=== PATIENT | female | born 1940 | race Caucasian/White ===

== ENCOUNTER 2017-02-19 10:16 | Emergency (ER) | payer MEDICARE, OTHER ==
[~2017-02-19] VITALS: Ht 163.8 cm; Wt 80.0 kg
[~2017-02-19 10:16] MED LIST: ASPI325T PO; ENOX40P SQ; GINKO; HYDR-2951 PO; MANY VITAMINS
[2017-02-19 10:21] VITALS: BP 159/58; PULSE 72; RESP 16; TEMP 97.5; O2SAT 98
[2017-02-19] MEDS ORDERED: multivitamins (10:34)
--- NOTE | 2017-02-19 11:10 | PD ---
HPI . Fall Chief Complaint: Injury Time Seen by Provider: 10:35 Travel History International Travel<30 days: No Contact w/Intl Traveler<30days: No Traveled to known affect area: No History of Present Illness HPI Patient presents for evaluation of injury sustained in a fall. The fall occurred yesterday. It was a trip and fall. She was pulling a shopping cart at the time of the injury. She fell onto both hands and onto her right knee. She states that she immediately had pain in her left forearm and went to a nearby store and bought a wrap for her arm. She states that the wrap has improved her pain a lot. Her pain is very mild. Pain is exacerbated by pronating and supinating her arm. She noticed some bruising to her right knee while she was here in the emergency department. She is concerned about that because she has hardware in her knee. She has no pain in her knee. PFSH Past Medical History Hx Anticoagulant Therapy: No Diabetes: No ?: Not Past Surgical History Oral Surgery: Yes (TONSILLECTOMY) Other Surgery: Yes Social History Alcohol Use: No Tobacco Use: No Substance Use: No Allergies-Medications (Allergen,Severity, Reaction): Coded Allergies: No Known Allergies (Unverified Adverse Reaction, Unknown, 02/19/17) Reported Meds & Prescriptions Reported Meds & Active Scripts Active Reported [multivitamins] Review of Systems Except as stated in HPI: all other systems reviewed are Neg Physical Exam Narrative GENERAL: Awake and alert and in no acute distress. SKIN: Warm and dry. HEAD: Normocephalic/atraumatic. EYES: Pupils are equal. Extraocular movements are intact. NECK: Normal range of motion. CARDIOVASCULAR: Regular rate and rhythm. RESPIRATORY: Nonlabored respirations. MUSCULOSKELETAL: Left forearm has no bruising or deformity noted. No tenderness along the radius or the ulna. She does have tenderness in the musculature on the extensor surface of the forearm. She has pain with pronation and supination. She is distally neurovascularly intact. The right knee has very faint bruising on the lateral aspect of the knee. There is no deformity at the. She is able to flex and extend the knee completely without difficulty. She is able to ambulate on her knee without difficulty. NEUROLOGICAL: Nonfocal. PSYCHIATRIC: Appropriate mood and affect. Data Data Last Documented VS Vital Signs Date Time Temp Pulse Resp B/P (MAP) Pulse Ox O2 Delivery O2 Flow Rate FiO2 02/19/17 10:21 97.5 72 16 159/58 (91) 98 Orders Orders Forearm (2vws) (02/19/17 10:39) Knee, Complete (4vws) (02/19/17 10:39) MDM Medical Decision Making Medical Screen Exam Complete: Yes Emergency Medical Condition: Yes Differential Diagnosis Differential diagnosis of extremity trauma includes but is not limited to fracture, sprain or strain, dislocation, contusion Narrative Course This patient presents for the evaluation of an injury to her left forearm and right knee as the result of a fall which occurred yesterday. By examination, she has strained muscles in her left forearm and a contusion to the right knee. Last Impressions Radius/Ulna X-Ray 02/19/17 1039 Signed Impressions: Service Date/Time: January 10:58 - CONCLUSION: Mild osteopenia with no underlying bony abnormality. Sam Ho MD Knee X-Ray 02/19/17 1039 Signed Impressions: Service Date/Time: January 10:58 - CONCLUSION: 1. Remote postsurgical changes . 2. Osteopenia with no acute fracture or malalignment. Sam Ho MD The x-rays were independently viewed by me. Diagnosis Primary Impression: Strain of left forearm Qualified Codes: S56.912A - Strain of unspecified muscles, fascia and tendons at forearm level, left arm, initial encounter Additional Impression: Contusion of right knee Qualified Codes: S80.01XA - Contusion of right knee, initial encounter Patient Instructions: Contusion in Adults (DC), General Instructions, Muscle Strain (DC), RICE Therapy (ED) Additional Instructions: Continue the wrap as needed for comfort. Tylenol or ibuprofen as needed for pain. Disposition: 01 DISCHARGE HOME Condition: Stable Makayla Voss MD Feb 19, 2017 11:10
--- NOTE | 2017-02-19 11:30 | RADRPT ---
EXAM DATE/TIME: 02/19/2017 10:58 [facility] COMPARISON: No previous studies available for comparison. INDICATIONS : Fall, left forearm pain from elbow to wrist. MEDICAL HISTORY : None. SURGICAL HISTORY : None. ENCOUNTER: Initial ACUITY: 2 days PAIN SCORE: 4/10 LOCATION: Left forearm FINDINGS: Two view examination of the left forearm demonstrates no evidence of fracture or dislocation. There i s mild osteopenia. The soft tissue structures are intact. CONCLUSION: Mild osteopenia with no underlying bony abnormality. Sam Ho MD on February 19, 2017 at 11:27 Board Certified Radiologist. This report was verified electronically.
--- NOTE | 2017-02-19 11:34 | RADRPT ---
EXAM DATE/TIME: 02/19/2017 10:58 [facility] COMPARISON: No previous studies available for comparison. INDICATIONS : Fall, right knee pain. MEDICAL HISTORY : right tibia fracture SURGICAL HISTORY : orif right tibia ENCOUNTER: Initial ACUITY: 2 days PAIN SCORE: 1/10 LOCATION: Right knee FINDINGS: A standard 4 view examination of the right knee was obtained and demonstrates diffuse osteopenia and normal alignment. Remote postsurgical changes are noted with screw plate fixation device transfixing an old proximal tibial fracture. There are mild degenerative changes in the lateral compartment with widening and sclerosis. There is minimal spurring. There is no definite evidence of a joint body or e ffusion. There is no acute fracture or malalignment. CONCLUSION: 1. Remote postsurgical changes . 2. Osteopenia with no acute fracture or malalignment. Sam Ho MD on February 19, 2017 at 11:28 Board Certified Radiologist. This report was verified electronically.
== END 2017-02-19 12:32 | disposition home or self-care (01) ==
LOC: PHED 10:16
DX: S56.912A Strain of unspecified muscles, fascia and tendons at forearm level, left arm, initial encounter (principal); S80.01XA Contusion of right knee, initial encounter; W01.0XXA Fall on same level from slipping, tripping and stumbling without subsequent striking against object, initial encounter; Y93.89 Activity, other specified
CPT/HCPCS: 73090; 73564; 99284